=== PATIENT | female | born 1930 | race Caucasian/White ===

== ENCOUNTER 2017-01-07 07:21 | Day surgery (SDC) | payer MEDICARE, OTHER ==
--- NOTE | 2017-01-07 06:26 | PCM.HP ---
H&P History of Present Illness - General Date of Service: 01/07/17 Admit Problem/Dx: history of colon cancer, need for screening colonoscopy Source of Information: Patient History Limitations: Reports: No Limitations - History of Present Illness Initial Comments - Free Text/Narative: The patient is a 86-year-old female referred by Dr. Aleida Mitchell, hx of colon cancer, need for colonoscopy. A follow up colonoscopy was recommended by Dr. De La Rosa to occur between -10/2016. The patient was last evaluated 11/27 in the office. She denies any changes to her health history. She has not followed up with Dr. Mitchell regarding her dizziness. She feels this has been "pretty" good since the last visit. Reports only one bout of dizziness that was mild since last visit. She reports she did finish the colonoscopy prep and stools were clear. Also reports taking an "Activate" supplement by [employer] The patient denies any constipation/ diarrhea/ hematochezia/ melena/blood on tissue paper/hemorrhoids. Has 1 soft, brown, formed, BMs daily. Bowel movements are described as regular and easy to pass. No unintentional weight loss. No change in stool caliber. No abdominal pain. Denies history of ulcerative colitis or Crohn's disease. Denies any family history of inflammatory bowel disease or GI cancers. Last colonoscopy was 2014, with Dr. Garcia. "Findings: Colon: An anastomosis was visualized near the colon. There was evidence of severe diverticulosis in the entire colon. Medium-sized internal hemorrhoids were found. The hemorrhoids were not bleeding." - Related Data Allergies/Adverse Reactions: Allergies Allergy/AdvReac Type Severity Reaction Status Date / Time No Known Allergies Allergy Verified 01/06/17 15:12 Home Medications: Home Meds Vitamin E 400 unit PO DAILY 04/26/16 [History] Acetaminophen [Tylenol] 650 mg PO Q4H PRN 01/06/17 [History] Ascorbic Acid [Vitamin C] 1,000 mg PO DAILY 01/06/17 [History] Calcium Phosphate Trib/Vit D3 [Calcium + Vitamin D3 Gummies] 1 tab PO DAILY [History] Cholecalciferol (Vitamin D3) [Vitamin D3] 1,000 units PO DAILY 01/06/17 [History ] Cyclobenzaprine [Flexeril] 10 mg PO TID PRN 01/06/17 [History] Past Medical History Cardiovascular History: Reports: CAD Respiratory History: Reports: None Gastrointestinal History: Reports: Diverticulosis, Hemorrhoids Genitourinary History: Reports: Other (See Below) Other Genitourinary History: hematuria 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) Other OB/BYN History: R masectomy Musculoskeletal History: Reports: Other (See Below) Other Musculoskeletal History: osteopenia Neurological History: Reports: Other (See Below) Other Neuro History: dizziness with exertion Psychiatric History: Reports: None Endocrine/Metabolic History: Reports: None Hematologic History: Reports: None Immunologic History: Reports: None Oncologic (Cancer) History: Reports: Breast, Colon, Other (See Below) Other Oncologic History: right lumpectomy Dermatologic History: Reports: None - Past Surgical History Head Surgeries/Procedures: Reports: None HEENT Surgical History: Reports: Cataract Surgery, Tonsillectomy GI Surgical History: Reports: Appendectomy, Colonoscopy, Other (See Below) Other GI Surgeries/Procedures: laparoscopic ileocolectomy for colon cancer Male Surgical History: Reports: Mastectomy Musculoskeletal Surgical History: Reports: Other (See Below) Other Musculoskeletal Surgeries/Procedures:: L hand fracture, closed reduction of Right radius fracture Oncologic Surgical History: Reports: Mastectomy Social & Family History - Tobacco Use Smoking Status *Q: Never Smoker - Caffeine Use Caffeine Use: Reports: Tea Other Caffeine Use: 1 cup tea daily - Recreational Drug Use Recreational Drug Use: No Drug Use in Last 12 Months: No H&P Review of Systems - Review of Systems: Review Of Systems: See Below Free Text/Narrative: Denies any exertional chest pain or shortness of breath. Walks the stairs in her house for exercise if she cannot go outside, denies shortness of breath or chest pain with this. NO history of any easy bleeding. Hx of easy bruising. No personal or familial history of clotting or bleeding disorders. No history of anesthetic complications. No history of familial anesthetic complications. Denies presence/history of chest pain, palpitations, lower extremity edema, dyspnea at rest, orthopnea, claudication, wheezing, obstructive sleep apnea, chronic cough, upper respiratory symptoms in the last two weeks. No history of blood thinner use. No history of anemia. No history of seizure or stroke. No history of fever, chills, or nightsweats. No prior cardiology or pulmonology evaluation She does have occasional dizziness with exertion. Hx of a fall in April of 2016. Head CT showed nothing acute. Carotids were negative. General: Reports: No Symptoms. Denies: Fever, Chills HEENT: Reports: No Symptoms Pulmonary: Reports: No Symptoms. Denies: Shortness of Breath, Wheezing Cardiovascular: Reports: No Symptoms. Denies: Chest Pain, Palpitations Gastrointestinal: Reports: No Symptoms. Denies: Abdominal Pain Genitourinary: Reports: No Symptoms Musculoskeletal: Reports: No Symptoms Skin: Reports: No Symptoms Psychiatric: Reports: No Symptoms Neurological: Reports: No Symptoms, Dizziness (hx of none presently) Hematologic/Lymphatic: Reports: No Symptoms Immunologic: Reports: No Symptoms Exam - Exam Exam: See Below - Vital Signs Weight: 67.132 kg - Exam General: Alert, Oriented, Cooperative HEENT: Conjunctiva Clear. No: Scleral Icterus Lungs: Clear to Auscultation, Normal Respiratory Effort Cardiovascular: Regular Rate, Regular Rhythm, Normal S1, Normal S2, Systolic Murmur Abdomen: Soft. No: Tenderness Back Exam: Normal Inspection Extremities: Normal Inspection. No: Clubbing, Cyanosis, Edema, Increased Warmth Skin: Warm, Dry, Intact Neuro Extensive - Mental Status: Alert, Oriented x3, Normal Mood/Affect, Normal Cognition, Memory Intact Psychiatric: Alert, Normal Affect, Normal Mood *Q Meaningful Use (ADM) - VTE *Q VTE Criteria *Q: - Stroke *Q Stroke Criteria *Q: - AMI *Q AMI Criteria *Q: - Problem List (1) History of colon cancer SNOMED Code(s): 424019056 ICD Code: Z85.038 - PERSONAL HISTORY OF MALIGNANT NEOPLASM OF LARGE INTESTINE Status: Acute Current Visit: Yes Problem List Initiated/Reviewed/Updated: Yes Orders Last 24hrs: Active Orders 24 hr Category Date Time Status Peripheral IV Care [RC] . DIRECTED Care 01/07/17 07:00 Active Verify Patient Consent Obtain [RC] ASDIRECTED Care 01/07/17 07:00 Active Lactated Ringers [Ringers, Lactated] 1,000 ml Med 01/07/17 07:00 Active IV ASDIRECTED Lidocaine 1%/Sod Bicarbonate [Buffered Lidocaine 1% in Med 01/07/17 07:00 Active NS 8.4%] 0.25 ml IV ONETIME PRN Sodium Chloride 0.9% [Saline Flush] Med 01/07/17 07:00 Active 10 ml FLUSH ASDIRECTED PRN Medication Administration Instruction [OM.PC] Routine Oth 01/07/17 07:00 Ordered Peripheral IV Insertion Adult [OM.PC] Routine Oth 01/07/17 07:00 Ordered Medication Orders Lactated Ringer's (Ringers, Lactated) 1,000 mls @ 125 mls/hr IV ASDIRECTED MARLENE Lidocaine/Sodium Bicarbonate (Buffered Lidocaine 1% In Ns 8.4%) 0.25 ml IV ONETIME PRN PRN Reason: Prior to IV Start Sodium Chloride (Saline Flush) 10 ml FLUSH ASDIRECTED PRN PRN Reason: Keep Vein Open Assessment/Plan Comment:: 86yr female with history of colon cancer, need for screening colonoscopy Patient can perform 4 METS of physical activity without chest pain or shortness of breath. Hx of dizziness intermittently with exertion PLAN: We discussed performing a screening colonoscopy. We discussed the risks and benefits of the procedure, including, pain, bleeding, infection, damage to surrounding structures, need for additional procedures, patient agreed to proceed. Again discussed I would like her to follow up with PCP earlier than March for dizziness. She also does have a murmur, I found no hx of echocardiogram. Consider echocardiogram for further evaluation. This patient was evaluated with Dr. Faviola Garcia, plan formulated by Dr. Faviola Garcia. CHRIS Perkins scribing for Dr. Faviola Garcia
[~2017-01-07 07:21] MED LIST: Lactated Ringers 1,000 ML IV SCH; Lidocaine 1%/Sod Bicarbonate in NS 8.4% 1 ML Syringe IV PRN; Sodium Chloride 0.9% 10 ML Syringe FLUSH PRN
[2017-01-07] MEDS ORDERED: fentaNYL 100 MCG/2 ML SDV ONE (07:36)
[2017-01-07] MEDS ORDERED: Lidocaine 1% 4 ML ONE (07:36)
[2017-01-07] MEDS ORDERED: Propofol 200 MG/20 ML SDV ONE (07:36)
--- NOTE | 2017-01-07 07:58 | PCM.PREANE ---
Preanesthetic Assessment - Anesthesia/Transfusion/Family Hx Anesthesia History: Prior Anesthesia Without Reaction Family History of Anesthesia Reaction: No Transfusion History: No Prior Transfusion(s) - Review of Systems General: No Symptoms Pulmonary: No Symptoms Cardiovascular: No Symptoms Gastrointestinal: No symptoms Neurological: No Symptoms Other: Reports: None - Physical Assessment NPO Status Date: 01/06/17 NPO Status Time: 00:00 Pulse: 57 O2 Sat by Pulse Oximetry: 95 Respiratory Rate: 16 Blood Pressure: 116/78 Temperature: 36.7 C Height: 1.68 m Weight: 67.132 kg ASA Class: 2 Mental Status: Alert & Oriented x3 Dentition: Reports: Broken Tooth/Teeth (front top) Thyro-Mental Finger Breadths: 3 Mouth Opening Finger Breadths: 3 ROM/Head Extension: Limited/Partial Lungs: Clear to auscultation, Normal respiratory effort Cardiovascular: Regular Rate, Regular Rhythm, No Murmurs - Allergies Allergies/Adverse Reactions: Allergies Allergy/AdvReac Type Severity Reaction Status Date / Time No Known Allergies Allergy Verified 01/06/17 15:12 - Blood Blood Available: No Product(s) Available: None - Anesthesia Plan Pre-Op Medication Ordered: None - Acknowledgements Anesthesia Type Planned: MAC Pt an Appropriate Candidate for the Planned Anesthesia: Yes Alternatives and Risks of Anesthesia Discussed w Pt/Guardian: Yes Pt/Guardian Understands and Agrees with Anesthesia Plan: Yes PreAnesthesia Questionnaire Cardiovascular History: Reports: CAD Respiratory History: Reports: None Gastrointestinal History: Reports: Diverticulosis, Hemorrhoids Genitourinary History: Reports: Other (See Below) Other Genitourinary History: hematuria 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 (See Below) Other OB/BYN History: R masectomy Musculoskeletal History: Reports: Other (See Below) Other Musculoskeletal History: osteopenia Neurological History: Reports: Other (See Below) Other Neuro History: dizziness with exertion Psychiatric History: Reports: None Endocrine/Metabolic History: Reports: None Hematologic History: Reports: None Immunologic History: Reports: None Oncologic (Cancer) History: Reports: Breast, Colon, Other (See Below) Other Oncologic History: right lumpectomy Dermatologic History: Reports: None - Past Surgical History Head Surgeries/Procedures: Reports: None HEENT Surgical History: Reports: Cataract Surgery, Tonsillectomy GI Surgical History: Reports: Appendectomy, Colonoscopy, Other (See Below) Other GI Surgeries/Procedures: laparoscopic ileocolectomy for colon cancer Male Surgical History: Reports: Mastectomy Musculoskeletal Surgical History: Reports: Other (See Below) Other Musculoskeletal Surgeries/Procedures:: L hand fracture, closed reduction of Right radius fracture Oncologic Surgical History: Reports: Mastectomy - SUBSTANCE USE Smoking Status *Q: Never Smoker Recreational Drug Use History: No - HOME MEDS Home Medications: Home Meds Vitamin E 400 unit PO DAILY 04/26/16 [History] Acetaminophen [Tylenol] 650 mg PO Q4H PRN 01/06/17 [History] Ascorbic Acid [Vitamin C] 1,000 mg PO DAILY 01/06/17 [History] Calcium Phosphate Trib/Vit D3 [Calcium + Vitamin D3 Gummies] 1 tab PO DAILY [History] Cholecalciferol (Vitamin D3) [Vitamin D3] 1,000 units PO DAILY 01/06/17 [History ] Cyclobenzaprine [Flexeril] 10 mg PO TID PRN 01/06/17 [History] - CURRENT (IN HOUSE) MEDS Current Meds: Current Medications Lactated Ringer's (Ringers, Lactated) 1,000 mls @ 125 mls/hr IV ASDIRECTED MARLENE Lidocaine/Sodium Bicarbonate (Buffered Lidocaine 1% In Ns 8.4%) 0.25 ml IV ONETIME PRN PRN Reason: Prior to IV Start Sodium Chloride (Saline Flush) 10 ml FLUSH ASDIRECTED PRN PRN Reason: Keep Vein Open Discontinued Medications Fentanyl (Sublimaze) Confirm Administered Dose 100 mcg .ROUTE .STK-MED ONE Stop: 01/07/17 07:37 Lidocaine HCl (Xylocaine-Mpf 1%) Confirm Administered Dose 4 mls @ as directed .ROUTE .STK-MED ONE Stop: 01/07/17 07:37 Propofol (Diprivan 20 Ml) Confirm Administered Dose 200 mg .ROUTE .STK-MED ONE Stop: 01/07/17 07:37
[2017-01-07] MEDS ORDERED: ePHEDrine/Normal Saline 25 MG/5 ML Syringe ONE (08:57)
--- NOTE | 2017-01-07 09:05 | PCM48HPAN ---
Post Anesthesia Note - EVALUATION WITHIN 48HRS OF ANESTHETIC Vital Signs in Normal Range: Yes Patient Participated in Evaluation: Yes Respiratory Function Stable: Yes Airway Patent: Yes Cardiovascular Function Stable: Yes Hydration Status Stable: Yes Pain Control Satisfactory: Yes Nausea and Vomiting Control Satisfactory: Yes Mental Status Recovered: Yes
--- NOTE | 2017-01-07 09:16 | PCM.OPNOTE ---
- General Post-Op/Procedure Note Date of Surgery/Procedure: 01/07/17 Operative Procedure(s): Sigmoidoscopy with cold forceps polypectomy Pre Op Diagnosis: Personal history of colon cancer, status post resection in 2011 Post-Op Diagnosis: Severe diverticulosis, diminutive sigmoid colon polyp, inability pass the scope past 60 cm, internal hemorrhoids (Grade II) Anesthesia Technique: MAC Primary Surgeon: Faviola Garcia Anesthesia Provider: Adis Fontanez Pathology: 1. Sigmoid colon polyp Fluid Replacement, Intraop: 600 (mL crystalloid ) EBL in mLs: 1 Complications: None Condition: Good Free Text/Narrative:: INDICATION FOR PROCEDURE: The patient is a 86-year-old woman who was referred [facility] by Dr. Kimo De La Rosa for evaluation for colonoscopy. Her primary care providers Dr. Aleida Mitchell. She is also now following with Dr. john flores for oncology. Her last colonoscopy was performed by [facility] in August 2015. Her colon was difficult to navigate at that time, but a complete colonoscopy to the anastomosis was performed with evidence of severe diverticulosis. She does have a personal history of right colon cancer and is s/p resection in 2011. Performing a surveillance colonoscopy and the associated risks of the procedure had been discussed with the patient. The patient found these risks acceptable and agreed to proceed. DESCRIPTION OF PROCEDURE: The patient was taken to the operating room and placed in left lateral decubitus position. After induction of adequate sedation , a digital rectal exam was performed which was unremarkable. A pediatric Olympus colonoscope was inserted into the rectum and guided under direct visualization to 60 cm. The scope was not able to be advanced past this point. There was not any significant looping of the scope or obvious colonic stricture. Adhesions or tortuosity related to her diverticular disease were felt to be the causes of the inability to advance further. Further pressure was not used to push past the stricture due to her age and increased risk for perforation. The scope was then slowly withdrawn through the colon. The quality of the prep was good. There was no evidence of angiodysplasias. Severe diverticulosis was noted in the sigmoid colon. A diminutive sessile colon polyp was removed with cold forceps. The scope was withdrawn into the rectum and retroflexed. There were Grade II internal hemorrhoids. The scope was straightened, the colon was desufflated, and the scope was withdrawn. The patient was awakened from sedation and transferred to the recovery room in stable condition having tolerated the procedure well. POSTOPERATIVE PLAN: I discussed with the patient's daughter via telephone my intraoperative findings. Cologuard could be considered, or another attempted colonoscopy in the future vs. a barium enema. We will discuss options with the patient when she presents for follow up.
[2017-01-07 09:46] VITALS: BP 110/71
== END 2017-01-07 10:10 | disposition home or self-care (01) ==
LOC: JD.SDS 07:21
PROVIDERS: ATTEND Surgery
PROC: 0DBN8ZZ Excision of Sigmoid Colon, Via Natural or Artificial Opening Endoscopic (ICD-10-PCS; principal; 2017-01-07)
DX: Z12.11 Encounter for screening for malignant neoplasm of colon (principal); K57.30 Diverticulosis of large intestine without perforation or abscess without bleeding; K64.1 Second degree hemorrhoids; I25.10 Atherosclerotic heart disease of native coronary artery without angina pectoris; Z85.038 Personal history of other malignant neoplasm of large intestine; Z85.3 Personal history of malignant neoplasm of breast; Z79.899 Other long term (current) drug therapy; Z90.10 Acquired absence of unspecified breast and nipple; Z90.49 Acquired absence of other specified parts of digestive tract; Z90.89 Acquired absence of other organs
CPT/HCPCS: 45331; J3010; J7050; J7120; 00810; 88305; J2704

== ENCOUNTER 2018-04-19 08:51 | Emergency (ER) | payer MEDICARE, OTHER ==
[2018-04-19 09:11] VITALS: BP 125/44
[2018-04-19] MEDS ORDERED: Acetaminophen 325 MG Tab PO ONE (09:35)
[2018-04-19] MEDS ORDERED: traMADol 50 MG Tab PO ONE (09:35)
--- NOTE | 2018-04-19 11:07 | EDM.PDOC ---
ED HPI GENERAL MEDICAL PROBLEM - General Chief Complaint: Back Pain or Injury Stated Complaint: BACK PAIN Time Seen by Provider: 04/19/18 09:15 Source of Information: Reports: Patient, RN Notes Reviewed - History of Present Illness INITIAL COMMENTS - FREE TEXT/NARRATIVE: 87-year-old lady comes in with right low back pain. She's been having difficulty with right low back pain for several months. She was prescribed medication at the clinic about 2 weeks ago that was giving her moderate relief but now she has run out. She has had prior x-rays, MRI and even neurosurgical consultation but has opted not to have surgery. She states she did get an injection of low back a few months ago and that did help but no to having quite significant discomfort right low back worse with motion with radiation down right leg toward the knee. She also has been having hip discomfort with radiation of pain towards the groin with weightbearing. No voiding symptoms. No recent fever or chills. No recent fall or injury. Lower Back Pain Score (Numeric/FACES): 8 - Related Data Allergies Allergy/AdvReac Type Severity Reaction Status Date / Time No Known Allergies Allergy Verified 04/19/18 09:10 Home Meds: Home Meds Vitamin E 400 unit PO DAILY 04/26/16 [History] Acetaminophen [Tylenol] 650 mg PO Q4H PRN 01/06/17 [History] Ascorbic Acid [Vitamin C] 1,000 mg PO DAILY 01/06/17 [History] Calcium Phosphate Trib/Vit D3 [Calcium + Vitamin D3 Gummies] 1 tab PO DAILY [History] Cholecalciferol (Vitamin D3) [Vitamin D3] 1,000 units PO DAILY 01/06/17 [History ] Tolterodine Tartrate [Tolterodine Tartrate ER] 2 mg PO DAILY 04/19/18 [History] traMADol [Ultram] 50 mg PO Q8HR PRN #30 tablet 04/19/18 [Rx] Past Medical History Cardiovascular History: Reports: CAD Respiratory History: Reports: None Gastrointestinal History: Reports: Diverticulosis, Hemorrhoids Genitourinary History: Reports: Other (See Below) Other Genitourinary History: hematuria 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 Musculoskeletal History: Reports: Other (See Below) Other Musculoskeletal History: osteopenia Neurological History: Reports: Other (See Below) Other Neuro History: dizziness with exertion Psychiatric History: Reports: None Endocrine/Metabolic History: Reports: None Hematologic History: Reports: None Immunologic History: Reports: None Oncologic (Cancer) History: Reports: Breast, Colon, Other (See Below) Other Oncologic History: right lumpectomy Dermatologic History: Reports: None - Past Surgical History Head Surgeries/Procedures: Reports: None HEENT Surgical History: Reports: Cataract Surgery, Tonsillectomy GI Surgical History: Reports: Appendectomy, Colonoscopy, Other (See Below) Other GI Surgeries/Procedures: laparoscopic ileocolectomy for colon cancer Male Surgical History: Reports: Mastectomy Musculoskeletal Surgical History: Reports: Other (See Below) Other Musculoskeletal Surgeries/Procedures:: L hand fracture, closed reduction of Right radius fracture Oncologic Surgical History: Reports: Mastectomy Social & Family History - Caffeine Use Caffeine Use: Reports: Tea Other Caffeine Use: 1 cup tea daily ED ROS GENERAL - Review of Systems Review Of Systems: See Below Constitutional: Denies: Fever, Chills, Diaphoresis HEENT: Reports: No Symptoms Respiratory: Denies: Shortness of Breath Cardiovascular: Denies: Chest Pain GI/Abdominal: Denies: Abdominal Pain, Nausea, Vomiting Musculoskeletal: Reports: Back Pain Skin: Denies: Bruising, Rash Neurological: Reports: Difficulty Walking. Denies: Numbness, Tingling ED EXAM,LOWER BACK PAIN/INJURY - Physical Exam Exam: See Below General Appearance: Alert, No Apparent Distress (While at rest) Throat/Mouth: Normal Inspection Head: Atraumatic Neck: Supple, Full Range of Motion Respiratory/Chest: No Respiratory Distress, Lungs Clear, Normal Breath Sounds Cardiovascular: Regular Rate, Rhythm GI/Abdominal: Soft, Non-Tender Back Exam: Other (There is mild tenderness bilateral lower back, no bruising or swelling visible) Extremities: Other (Right hip is nontender,) Neurological: No Motor/Sensory Deficits Skin Exam: Warm, Dry, Normal Color, No Rash Course - Vital Signs Last Recorded V/S: Last Vital Signs Temp 97.5 F 04/19/18 09:05 Pulse 72 04/19/18 09:05 Resp 18 04/19/18 09:05 BP 125/44 L 04/19/18 09:05 Pulse Ox 100 04/19/18 09:05 - Orders/Labs/Meds Labs: Laboratory Tests 04/19/18 04/19/18 Range/Units 09:47 09:47 WBC 5.46 (3.98-10.04) K/mm3 RBC 3.72 L (3.98-5.22) M/mm3 Hgb 11.7 (11.2-15.7) gm/L Hct 36.6 (34.1-44.9) % MCV 98.4 H (79.4-94.8) fl MCH 31.5 (25.6-32.2) pg MCHC 32.0 L (32.2-35.5) g/dl RDW Std Deviation 55.0 H (36.4-46.3) fL Plt Count 365 (182-369) K/mm3 MPV 8.8 L (9.4-12.3) fl Neut % (Auto) 68.5 (34.0-71.1) % Lymph % (Auto) 21.4 (19.3-51.7) % [place] % (Auto) 5.7 (4.7-12.5) % Eos % (Auto) 3.7 (0.7-5.8) Baso % (Auto) 0.5 (0.1-1.2) % Neut # (Auto) 3.74 (1.56-6.13) K/mm3 Lymph # (Auto) 1.17 L (1.18-3.74) K/mm3 [place] # (Auto) 0.31 (0.24-0.36) K/mm3 Eos # (Auto) 0.20 (0.04-0.36) K/mm3 Baso # (Auto) 0.03 (0.01-0.08) K/mm3 Sodium 141 (136-145) mEq/L Potassium 3.6 (3.5-5.1) mEq/L Chloride 105 (98-107) mEq/L Carbon Dioxide 25 (21-32) mEq/L Anion Gap 14.6 (5-15) BUN 13 (7-18) mg/dL Creatinine 1.1 H (0.55-1.02) mg/dL Est Cr Clr Drug Dosing TNP Estimated GFR (MDRD) 47 (>60) mL/min BUN/Creatinine Ratio 11.8 L (14-18) Glucose 79 L (83-115) mg/dL Calcium 8.7 (8.5-10.1) mg/dL Total Bilirubin 0.2 (0.2-1.0) mg/dL AST 37 (15-37) U/L ALT 19 (14-59) U/L Alkaline Phosphatase 114 (46-116) U/L Total Protein 6.6 (6.4-8.2) g/dl Albumin 3.1 L (3.4-5.0) g/dl Globulin 3.5 gm/dL Albumin/Globulin Ratio 0.9 L (1-2) Meds: Medications Discontinued Medications Generic Name Dose Route Start Last Admin Trade Name Beckq PRN Reason Stop Dose Admin Acetaminophen 975 mg 04/19/18 09:35 04/19/18 09:40 Tylenol PO 04/19/18 09:36 975 mg NOW ONE Administration Tramadol HCl 50 mg 04/19/18 09:35 04/19/18 09:42 Ultram PO 04/19/18 09:36 50 mg ONETIME ONE Administration - Re-Assessments/Exams Free Text/Narrative Re-Assessment/Exam: 04/19/18 15:02 X-rays of the right hip do show quite severe degenerative disease, no visible fracture. She has been given Tylenol and tramadol and that is giving her some relief. We'll also put her on low-dose prednisone for about 6 days, see how that works for her. Discharge instructions as documented. Departure - Departure Time of Disposition: 11:02 Disposition: Home, Self-Care 01 Condition: Fair Clinical Impression: Back pain Qualifiers: Back pain location: low back pain Chronicity: chronic Back pain laterality: right Sciatica presence: with sciatica Sciatica laterality: sciatica of right side Qualified Code(s): M54.41 - Lumbago with sciatica, right side - Discharge Information Prescriptions: traMADol [Ultram] 50 mg PO Q8HR PRN #30 tablet PRN Reason: Pain Instructions: Back Pain, Adult, [id number] Referrals: Aleida Mitchell MD [Primary Care Provider] - Forms: ED Department Discharge Additional Instructions: You may take tramadol 50 mg up to 3 times daily for low back discomfort, continue to take Tylenol or Excedrin in between doses also 2-3 times daily for extra pain relief, alternate ice and heat as needed, physical therapy, prednisone 20 mg today and then every morning for the next [address] Mitchell in about 2-3 weeks as planned.
--- NOTE | 2018-04-19 11:43 | CR ---
Pelvis and right hip: AP view of the pelvis was obtained as well as AP and frog-leg lateral views of the right hip. Joint space narrowing is seen within both hips. Osteophytes are noted off of both femoral heads. Cystic change is also seen within both femoral heads which is degenerative in etiology. Surgical material is seen within the right abdomen. Osteopenia is seen. No fracture or other abnormality is noted. Impression: 1. 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 2. Osteopenia. 3. Nothing acute is seen on AP pelvis or on two-view right hip exam. Diagnostic code #2
== END 2018-04-19 11:21 | disposition home or self-care (01) ==
LOC: JD.ED 08:51
DX: M54.41 Lumbago with sciatica, right side (principal)
CPT/HCPCS: 36415; 73502; 80053; 85025; 99283; A9270